=== PATIENT | male | born 1990 | race African-American/Black ===

== ENCOUNTER 2024-07-06 09:15 | Observation (INO) | payer OTHER ==
[2024-07-06 09:46] VITALS: BMI 22.1
[2024-07-06 10:43] LABS: ABSOLUTE IMMATURE GRANULOCYTES 0.09 x10^3/uL (0.0-0.031); BASOPHILS # 0.03 x10^3/uL (0.01-0.08); EOSINOPHIL % 0.6 % (0.8-7.0); EOSINOPHILS # 0.06 x10^3/uL (0.04-0.54); HEMATOCRIT 33.9 % (40.1-51.0); HEMOGLOBIN 11.3 g/dL (13.7-17.5); MCHC 33.3 g/dl (32.3-36.5); MEAN CELL VOLUME 65.7 fl (79.0-92.2); MEAN PLT VOLUME 8.1 fl (9.4-12.4); MONOCYTE # 0.77 x10^3/uL (0.30-0.82); MONOCYTE % 7.4 % (5.3-12.2); PLATELET COUNT 146 x10^3/uL (163-337); RDW 14.7 % (12.0-15.6); Reticulocyte % 1.91 % (0.51-1.81)
[2024-07-06] MEDS ORDERED: morphine SULFATE 4 MG/ML VIAL ONE ×2 (10:52→16:35)
[2024-07-06] MEDS ORDERED: KETOROLAC TROMETHAMINE 15 MG/ML VIAL ONE (10:53)
[2024-07-06 10:54] LABS: INR 1.17 (0.83-1.09); PROTHROMBIN TIME (PATIENT) 12.9 SEC (9.7-13.0)
[2024-07-06 10:57] LABS: ACTIVATED PTT 27.8 SECONDS (25.2-36.5)
[2024-07-06 11:07] LABS: CHLORIDE 102 mmol/L (98-107); POTASSIUM 3.9 mmol/L (3.5-5.1); SODIUM 138 mmol/L (136-145)
[2024-07-06 11:09] LABS: ALBUMIN 4.6 g/dl (3.4-5.0)
[2024-07-06 11:10] LABS: ANION GAP 6 mmol/L (4-13); BLOOD UREA NITROGEN 7.2 mg/dL (7-18); CALCIUM 9.4 mg/dL (8.5-10.1); CO2 31 mmol/L (21-32); GLUCOSE,RANDOM 98 mg/dL (74-106)
[2024-07-06 11:13] LABS: SGPT/ALT 21 U/L (13-61)
[2024-07-06 11:14] LABS: CREATININE 1.1 mg/dL (0.55-1.3); SGOT/AST 21 U/L (15-37)
[2024-07-06 11:15] LABS: BILIRUBIN,TOTAL 1.2 mg/dL (0.2-1); TOT PROT 7.5 g/dl (6.4-8.2)
[2024-07-06 11:16] LABS: ALK PHOS 112 U/L (45-117)
[2024-07-06 11:18] LABS: LDH 466 U/L (87-246)
[2024-07-06] MEDS: morphine CARPU-JECT 4 MG/1 ML DISP.SYRIN IVPUSH ONE ×2 (11:29→16:39)
[2024-07-06] MEDS: SODIUM CHLORIDE 0.9% 500 ML INFUS.BAG IV ONE (11:29)
[2024-07-06] MEDS: KETOROLAC TROMETHAMINE 15 MG/ML VIAL IVPUSH ONE ×2 (11:30→21:05)
[2024-07-06] MEDS ORDERED: ACETAMINOPHEN INJECTION 100 ML ONE (13:36)
[2024-07-06] MEDS: ACETAMINOPHEN 1000 MG/100 ML BAG IVPB ONE (13:43)
[2024-07-06] MEDS: morphine SULFATE 4 MG/ML VIAL IVPUSH ONE (21:04)
[2024-07-06] MEDS: ACETAMINOPHEN 500 MG TABLET (FP) PO SCH (22:46)
[2024-07-06 23:34] VITALS: RESP 18
[2024-07-06] MEDS: DEXTROSE 5%-0.45% SALINE 1,000 ML IV SCH (23:52)
[2024-07-07] MEDS: morphine SULFATE 4 MG/ML VIAL IVPUSH PRN (03:10)
[2024-07-07] MEDS: ENOXAPARIN NA (PORCINE) 40 MG/0.4 ML DISP.SYRIN SQ SCH (09:06)
[2024-07-07] MEDS: FOLIC ACID 1 MG TABLET (FP) PO SCH (09:06)
[2024-07-07] MEDS: oxyCODONE HCL 5 MG TABLET PO PRN (09:06)
[2024-07-07 09:10] LABS: HEMOGLOBIN 10.5 g/dL (13.7-17.5); MCHC 32.8 g/dl (32.3-36.5); MEAN CELL VOLUME 65.7 fl (79.0-92.2); MEAN PLT VOLUME 8.5 fl (9.4-12.4); PLATELET COUNT 130 x10^3/uL (163-337)
[2024-07-07 09:29] LABS: POTASSIUM 3.6 mmol/L (3.5-5.1)
[2024-07-07 09:33] LABS: CALCIUM 8.9 mg/dL (8.5-10.1)
[2024-07-07 09:34] LABS: BLOOD UREA NITROGEN 10.6 mg/dL (7-18); MAGNESIUM 1.9 mg/dL (1.8-2.4)
[2024-07-07 09:37] LABS: CREATININE 1.1 mg/dL (0.55-1.3); PHOSPHOROUS 3.4 mg/dL (2.5-4.9)
[2024-07-08 08:13] LABS: ABSOLUTE IMMATURE GRANULOCYTES 0.03 x10^3/uL (0.0-0.031); BASOPHILS # 0.04 x10^3/uL (0.01-0.08); EOSINOPHIL % 2.7 % (0.8-7.0); EOSINOPHILS # 0.15 x10^3/uL (0.04-0.54); HEMOGLOBIN 9.5 g/dL (13.7-17.5); MCHC 32.8 g/dl (32.3-36.5); MEAN CELL VOLUME 66.8 fl (79.0-92.2); MEAN PLT VOLUME 8.6 fl (9.4-12.4); MONOCYTE # 0.45 x10^3/uL (0.30-0.82); MONOCYTE % 8.2 % (5.3-12.2); PLATELET COUNT 139 x10^3/uL (163-337); RDW 14.7 % (12.0-15.6)
[2024-07-08 08:34] LABS: POTASSIUM 3.8 mmol/L (3.5-5.1)
[2024-07-08 08:45] LABS: CALCIUM 8.5 mg/dL (8.5-10.1)
[2024-07-08 08:46] LABS: BLOOD UREA NITROGEN 8.4 mg/dL (7-18); MAGNESIUM 1.7 mg/dL (1.8-2.4)
[2024-07-08 08:49] LABS: CREATININE 0.9 mg/dL (0.55-1.3); PHOSPHOROUS 3.7 mg/dL (2.5-4.9)
[2024-07-08 08:50] LABS: ALBUMIN 3.4 g/dl (3.4-5.0); TOT PROT 5.9 g/dl (6.4-8.2)
[2024-07-08 08:55] VITALS: BP 126/83; PULSE 60; TEMP 98.1
[2024-07-08] MEDS ORDERED: oxyCODONE HCL 5 MG TABLET PO PRN (09:46)
[2024-07-08] MEDS: MAGNESIUM SULFATE IN WATER 2 GM/50 ML IVPB IVPB ONE (10:01)
[2024-07-09 17:06] LABS: HGB SOLUBILITY Positive (Negative)
== END 2024-07-08 11:58 | disposition home or self-care (01) ==
LOC: JER 09:15 → JERBED 17:26 → J6S 18:21
PROVIDERS: ADMIT Internal Medicine; ATTEND Internal Medicine
PROC: 3E033GC Introduction of Other Therapeutic Substance into Peripheral Vein, Percutaneous Approach (ICD-10-PCS; principal; 2024-07-06)
PROC: 3E023GC Introduction of Other Therapeutic Substance into Muscle, Percutaneous Approach (ICD-10-PCS; 2024-07-06)
PROC: 3E0333Z Introduction of Anti-inflammatory into Peripheral Vein, Percutaneous Approach (ICD-10-PCS; 2024-07-06)
PROC: 3E033NZ Introduction of Analgesics, Hypnotics, Sedatives into Peripheral Vein, Percutaneous Approach (ICD-10-PCS; 2024-07-06)
DX: D57.00 Hb-SS disease with crisis, unspecified (principal); D56.3 Thalassemia minor; F12.21 Cannabis dependence, in remission
CPT/HCPCS: 0241U-QW; 36415; 71046-TC-FY; 80048; 80053; 82248; 82550; 83021; 83615; 83735; 84100; 84484; 85025; 85027; 85610; 85660; 85730; 86850; 86900; 86901; 93005; 93010; 94010; 96365; 96367; 96372; 96375; 96376; 99285-25; G0378; J0131